=== PATIENT | male | born 1960 | race Caucasian/White ===

== ENCOUNTER 2016-04-21 06:41 | Day surgery (SDC) | payer BC ==
[~2016-04-21] VITALS: Ht 170.2 cm; Wt 92.3 kg
--- NOTE | 2016-04-22 06:13 | OR ---
ADMIT: 04/21/2016 RM/LOC: [facility] MR#: [id number] [address] [id number] [address] CAR[address]ON [address] [place] [id number] Operative/Delivery Room Report SEX: M AGE: 56 : 1960 SURGERY DATE: 04/21/2016 SURGEON: Tristan Bonds MD PROCEDURE: Esophagogastroduodenoscopy with dilatation. PREOPERATIVE DIAGNOSIS: Trouble swallowing. POSTOPERATIVE DIAGNOSIS: Schatzki B ring. DESCRIPTION OF THE PROCEDURE: The patient was brought to the procedure room and placed in left lateral decubitus position. Informed consent had been obtained preoperatively. The risks and benefits including, but not limited to, perforation, sedation, and bleeding were discussed with the patient and agreed upon. All questions were answered, alternatives discussed, and the patient agreed. Monitored anesthesia care was provided by Jose Antonio Gusman CRNA, with propofol. The Olympus videoendoscope, model GIF-XQ180, was passed the level of cricopharyngeus using finger guidance. Then, using direct visualization, scope was passed the length of esophagus where no abnormalities of the esophageal mucosa, esophageal varices, or hiatal hernia were identified. There was a Schatzki B ring through which the scope passed easily. The stomach was entered, air was insufflated, fundic pool was suctioned. Gastric mucosa was inspected in its entirety, found to be normal. The pyloric sphincter was round, small, opened, and closed appropriately. Duodenal bulb was entered, inspected through the second part and no abnormalities were identified. The ampulla appeared normal. The scope was removed after retroflexion in the stomach revealed no abnormalities. An incidental view of the vocal cords likewise was unremarkable. The patient was then dilated to 46- Burmese using a Cabrera dilator. He tolerated these procedures without difficulty and no complications were expected. Preoperatively, Dr. Stearns noted the change in his rhythm strip. An electrocardiogram was obtained which showed some abnormalities, but the patient had no symptoms. It was recommended that Dr. Jernigan follow up with possibly a stress test and further evaluation of his cardiac status. Tristan Bonds MD/ lluvia JOB #: [id number] CC: Tristan Bonds, Attending Physician Allen Jernigan, Family Physician Allen Jernigan MD
== END 2016-04-21 09:24 | disposition home or self-care (01) ==
LOC: SSS 06:41
PROC: 0D757ZZ Dilation of Esophagus, Via Natural or Artificial Opening (ICD-10-PCS; principal; 2016-04-21)
DX: K22.2 Esophageal obstruction (principal); E03.9 Hypothyroidism, unspecified; I10 Essential (primary) hypertension; Z88.0 Allergy status to penicillin; Z88.5 Allergy status to narcotic agent; Z96.643 Presence of artificial hip joint, bilateral; Z79.899 Other long term (current) drug therapy